=== PATIENT | female | born 1945 | race Caucasian/White ===

== ENCOUNTER 2024-10-11 15:59 | Outpatient (RCR) | payer MEDICARE, SELFPAY ==
--- NOTE | 2024-10-11 17:12 | OPREHPOC ---
Outpatient Therapy Plan of Care This is a Multidisciplinary Plan of Care that may contain components documented by all disciplines (PT, OT, and ST.) PT Problem 1 PT Problem #1 Knowledge Deficit PT Goal 1 Goal / Goal Update The patient will be independent in a home exercise program. Target Visit 2 PT Problem 2 PT Problem #2 Impaired Functional Mobility PT Goal 1 Goal / Goal Update The patient will demonstrate 30% or less self perceived disability per the Dizziness Handicap Index. Target Visit 8 PT Problem 3 PT Problem #3 Impaired Vestibular System PT Goal 1 Goal / Goal Update The patient will demonstrate a no nystagmus with positional vertigo testing indicating a resolution of positional vertigo. The patient will demonstrate smooth pursuit with no nystagmus with VOR testing. Target Visit 8
--- NOTE | 2024-10-11 17:13 | PTOPEVAL1 ---
Assessment and note entered by Davida Salazar, PT Evaluation Information Assessment Status Evaluation ICD-10 Condition Codes (PT) Dizziness and Giddiness R42,BPPV H81.12 Onset 10/08/24 Subjective Information Nydia Capellan reports she started having vertigo on 10/08/24 when she woke to the alarm and rolled over to turn it off the room started spinning. She rolled her to her back and waited for the spinning to stop which took about a minute. She sat up and felt foggy in the head but the room did not spin again. She has not had the room spinning sensation but has felt light headed with sudden movements and getting up from chairs. She does take medication for high blood pressure but has not had any changes to her medication. She denies any illnesses recently. She denies nauseau, vomiting, and ringing in the ears. She has not fallen but has had 2 near falls since the vertigo began. She went to her doctor and was referred to PT. Reported Pain Level Pain Score 0: Self Report Assessment PT Clinical Summary Nydia Capellan presents with an onset of vertigo on 10/08/24. She has only had the one instance of vertigo but has had lightheadedness and dizziness with sudden movements since then. She demonstrates mild nystagmus with the left roll test and when transferring from sitting to right sidelying. She also demonstrates mild nystagmus with left visual tracking exercises. She was educated in VOR and positional treatments. She will benefit from skilled PT for vestibular rehabilitation. Plan of Care Interventions Neuro Re-education,Patient/Caregiver Education, Therapeutic Activities,Therapeutic Exercise PT Services Indicated Yes Treatment Frequency and 2 times a week for 8 visits Duration These treatments will address the objective and functional deficits as defined above. The patient will be advanced safely and appropriately in order for the patient to progress towards his/her prior level of function. Additional exercises will be introduced and as well as a comprehensive home exercise program upon discharge, if needed, ?to ensure carryover of functional gains achieved in the clinic. This treatment plan has been reviewed and agreement upon by the patient.
--- NOTE | 2024-10-26 13:47 | OPREHPOC ---
Outpatient Therapy Plan of Care This is a Multidisciplinary Plan of Care that may contain components documented by all disciplines (PT, OT, and ST.) PT Problem 1 PT Problem #1 Knowledge Deficit PT Goal 1 Goal / Goal Update The patient will be independent in a home exercise program. Target Visit 2 Progress Met PT Problem 2 PT Problem #2 Impaired Functional Mobility PT Goal 1 Goal / Goal Update The patient will demonstrate 30% or less self perceived disability per the Dizziness Handicap Index. Target Visit 8 Progress Met PT Problem 3 PT Problem #3 Impaired Vestibular System PT Goal 1 Goal / Goal Update The patient will demonstrate a no nystagmus with positional vertigo testing indicating a resolution of positional vertigo. The patient will demonstrate smooth pursuit with no nystagmus with VOR testing. Target Visit 8 Progress Met
--- NOTE | 2024-10-26 13:47 | PTOPDC ---
Assessment and note entered by Irina Quiroz, PT Evaluation Information Assessment Status Discharge ICD-10 Condition Codes (PT) Dizziness and Giddiness R42,BPPV H81.12 Onset 10/08/24 Subjective Information Nydia reports she no longer feels dizzy like she did when she started PT. She does still have some lightheadedness when she sits up in bed but she reports this happened before she got vertigo. Reported Pain Level Pain Score 0: Self Report Assessment PT Clinical Summary Mrs. Capellan has attended 5 total skilled physical therapy visits addressing vertigo and imbalance. Since her initial evaluation she no longer has symptoms of vertigo and no nystagmus is seen with positional testing. She has been independent with her HEP of habituation exercises and was educated to continue these as needed to prevent recurrence. She has met all therapeutic goals set for her and will be discharged from PT at this time. Plan of Care PT Services Indicated No
== END 2024-10-26 21:43 | disposition home or self-care (01) ==
LOC: CHSPT 15:59
PROVIDERS: PCP Hospitalist; Visit Provider Hospitalist
DX: H81.12 Benign paroxysmal vertigo, left ear (principal)
CPT/HCPCS: 95992; 97110; 97112; 97161